=== PATIENT | male | born 1940 | race Caucasian/White ===

== ENCOUNTER 2023-06-25 09:43 | Day surgery (SDC) | payer OTHER, SELFPAY ==
[2023-06-25] VITALS (8 sets, daily range): BP systolic 111–153; BP diastolic 61–87; BMI 29.1
[2023-06-25] MEDS: NSS 276 ML IV (10:29)
[2023-06-25 10:35] LABS: Glucose - Point of Care 183 mg/dl (70-99)
[2023-06-25 11:43] LABS: ACT-LR - POC 385 Seconds (116-155)
[2023-06-25] MEDS: NSS 1000 IV (11:54)
--- NOTE | 2023-06-25 11:57 | ITS.CL.CATH ---
Medical Dir - Catheterization
Cardiac Catheterization
Procedure Report:
CARDIAC CATHETERIZATION REPORT
Date of Procedure: 06/25/2023
Referring: Ismael Flanagan DO
Indication: Angina/abnormal stress test
HEMODYNAMIC DATA
AO: 129/77
LV: 129/18
LEFT VENTRICULOGRAPHY: Preserved wall motion with EF 54%
CORONARY ANGIOGRAPHY
Dominance: Right
Left Main: Short without focal stenosis
LAD: Focal 60% mid LAD stenosis. There is an 80% apical LAD stenosis
Circumflex: The circumflex proper is free of disease. OM1 is small. OM 2 is large with trivial luminal irregularities. OM 3 is a medium sized vessel with tandem 30% and 70% mid stenoses. The circumflex terminates with a tiny posterolateral branch
RCA: Large dominant vessel with 50% proximal stenosis, 30% mid stenosis and otherwise mild luminal irregularities
FloWire assessment: At the conclusion of the diagnostic study we proceeded with FloWire assessment of the mid LAD lesion and the OM 3 disease. Heparin was used for anticoagulation. A 6 Turkish 5 guide catheter was used. A [employer] flow wire was
advanced into the circumflex and across the OM 3 disease. iFR measurements were 0.97, 0.97, 0.96. These are all consistent with nonflow-limiting disease. The wire was withdrawn back to the guide and redirected into the LAD. Normalization was
again performed. The wire was passed through the 60% mid LAD lesion. iFR measurements were 0.93, 0.93, and 0.92. These are all consistent with nonflow-limiting disease and almost mirror the measurements made on the same lesion in 2017.
Closure Device: None-the procedure was performed via the right radial artery. The Lamin's test was normal prior to the procedure.
Radiation (mGy): 350
DAP (cm2.Gy): 20.9
Fluoroscopy time: 6.6 minutes
CONCLUSIONS
1: Normal LV function with EF 54%
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 The mid LAD lesion and the circumflex OM 3 disease are nonflow limiting by FloWire assessment
3. Continue medical therapy/risk factor modification efforts
Copy to: Ismael Flanagan DO, LOU Blake ([place], [place])
Rojelio Menjivar MD, FACC, [facility]
== END 2023-06-25 15:04 | disposition home or self-care (01) ==
LOC: CATH 09:43
PROVIDERS: ATTENDING PHYSICIAN Internal Medicine Cardiovascular Disease; FAMILY PHYSICIAN Nurse Practitioner Family; OTHER PHYSICIAN Internal Medicine Cardiovascular Disease
DX: I25.119 Atherosclerotic heart disease of native coronary artery with unspecified angina pectoris (principal); R94.39 Abnormal result of other cardiovascular function study; Z79.01 Long term (current) use of anticoagulants; Z79.82 Long term (current) use of aspirin
CPT/HCPCS: C1769; 82962; 85347; 93458; 93571; 93572; C1894; Q9967